=== PATIENT | male | born 1980 | race Caucasian/White ===

== ENCOUNTER 2023-03-15 23:54 | Emergency (ER) | payer OTHER ==
[2023-03-16 00:10] VITALS: BP 110/59; PULSE 69; RESP 18; TEMP 98.3; BMI 24.3
== END 2023-03-16 02:08 | disposition home or self-care (01) ==
LOC: JER 23:54
DX: R21 Rash and other nonspecific skin eruption (principal); L29.9 Pruritus, unspecified
CPT/HCPCS: 99283-25